=== PATIENT | male | born 1955 | race Caucasian/White ===

== ENCOUNTER 2020-10-14 08:16 | Emergency (ER) | payer OTHER ==
[2020-10-14 09:10] LABS: BASOPHIL 0.4 % (0-2); EOSINOPHIL 0.2 % (0-5); HCT 46.9 % (42.0-52.0); HGB 15.3 g/dl (13.2-18.0); MCH 29.8 pg (25.0-31.0); MCHC 32.6 g/dL (32.0-36.0); MCV 91.4 fL (78.0-100.0); MONOCYTE 8.9 % (0-12); MPV 10.7 fL (6.0-9.5); NEUTROPHIL 77.8 % (41-80); NRBC 0; PLT 229 K/uL (150-400); RBC 5.13 M/uL (4.70-6.00); RDW 14.5 % (11.5-14.0); WBC 12.8 K/uL (4.0-10.5)
[2020-10-14 09:11] LABS: BILIRUBIN 2+ mg/dL (NEGATIVE); BLOOD NEGATIVE Ery/uL (NEGATIVE); COLOR YELLOW (YELLOW); GLUCOSE (U) NORMAL (NORMAL); LEUKOCYTES NEGATIVE Leu/uL (NEGATIVE); NITRITE POSITIVE (NEGATIVE); PROTEIN 1+ mg/dL (NEGATIVE); SPECIFIC GRAVITY >=1.030 (1.001-1.030); pH 5.5 (5.0-9.0)
[2020-10-14 09:26] LABS: CLARITY HAZY (CLEAR)
[2020-10-14 09:28] LABS: BACTERIA TRACE; MUCOUS TRACE; URINARY RBC RARE
[2020-10-14 09:29] LABS: AMORPHOUS URATES CRYSTALS TRACE
[2020-10-14 09:31] LABS: ALBUMIN 3.2 g/dL (3.4-5.0); BILIRUBIN - TOTAL 1.8 mg/dL (0.2-1.0); BUN/CREAT RATIO (CALC) 14.9 RATIO; CREATININE 1.14 mg/dL (0.67-1.17); GLOBULIN (CALCULATION) 4.3 g/dL; POTASSIUM 4.5 mmol/L (3.5-5.1); TOTAL PROTEIN 7.5 g/dL (6.4-8.2)
[2020-10-14 09:37] LABS: LACTIC ACID 2.1 mmol/L (0.4-1.9)
[2020-10-14] MEDS ORDERED: NORCO 5-325 TA1 EACH PO ×2 (11:30→11:44)
== END 2020-10-14 11:52 | disposition home or self-care (01) ==
LOC: FER 08:16
PROVIDERS: Emergency Medicine
DX: C78.7 Secondary malignant neoplasm of liver and intrahepatic bile duct (principal); R91.8 Other nonspecific abnormal finding of lung field; C34.92 Malignant neoplasm of unspecified part of left bronchus or lung; F17.200 Nicotine dependence, unspecified, uncomplicated
CPT/HCPCS: 36415; 71250; 80053; 81001; 83605; 83690; 85025; 87088; 93005; J2543; J7030; Q9967

== ENCOUNTER 2020-10-31 09:25 | Inpatient (IN) | payer OTHER ==
[~2020-10-31 09:25] MED LIST: NORCO 5-325 TA1 EACH PO
[2020-10-31 09:54] LABS: BASOPHIL 0.2 % (0-2); EOSINOPHIL 0.2 % (0-5); HCT 49.8 % (42.0-52.0); HGB 17.2 g/dl (13.2-18.0); LYMPHOCYTE 7.8 % (15-48); MCH 30.2 pg (25.0-31.0); MCHC 34.5 g/dL (32.0-36.0); MCV 87.4 fL (78.0-100.0); MONOCYTE 6.1 % (0-12); NEUTROPHIL 79.2 % (41-80); NRBC 2.6; PLT 64 K/uL (150-400); RDW 21.2 % (11.5-14.0); WBC 19.4 K/uL (4.0-10.5)
[2020-10-31 10:13] LABS: INR 1.5 (0.9-1.2); PROTHROMBIN TIME 17.2 SECONDS (11.4-13.6); PTT 25.2 SECONDS (22.2-34.7)
[2020-10-31 10:17] LABS: ALBUMIN 2.5 g/dL (3.4-5.0); BUN/CREAT RATIO (CALC) 41.1 RATIO; CREATININE 1.51 mg/dL (0.67-1.17); GLOBULIN (CALCULATION) 3.9 g/dL; TOTAL PROTEIN 6.4 g/dL (6.4-8.2)
[2020-10-31 10:24] LABS: BILIRUBIN - TOTAL 12.6 mg/dL (0.2-1.0); POTASSIUM 7.3 mmol/L (3.5-5.1)
[2020-10-31 10:25] LABS: LACTIC ACID 11.4 mmol/L (0.4-1.9)
--- NOTE | 2020-11-01 06:30 | NUR ---
FAMILY AT BEDSIDE. FAMILY CAME TO THIS NURSE WITH CONCERNS THAT PATIENT MAY HAVE PASSED. THIS NURSE NOTIFIED THE KEVYN TAYLOR. TIME OF WAS 0607.
--- NOTE | 2020-11-01 14:45 | NUR ---
11/01/20 Patient prior to social assessment.
== END 2020-11-01 08:40 | disposition expired | DRG 180 ==
LOC: FER 09:25 → FMS 10:56
PROVIDERS: Emergency Medicine; ADMIT Internal Medicine
DX: C34.92 Malignant neoplasm of unspecified part of left bronchus or lung (principal); R65.11 Systemic inflammatory response syndrome (SIRS) of non-infectious origin with acute organ dysfunction; K72.00 Acute and subacute hepatic failure without coma; C78.7 Secondary malignant neoplasm of liver and intrahepatic bile duct; E87.2 Acidosis; C79.51 Secondary malignant neoplasm of bone; N17.9 Acute kidney failure, unspecified; E87.5 Hyperkalemia; E80.6 Other disorders of bilirubin metabolism; K76.89 Other specified diseases of liver; E86.0 Dehydration; Z51.5 Encounter for palliative care; M19.90 Unspecified osteoarthritis, unspecified site; F17.210 Nicotine dependence, cigarettes, uncomplicated; K72.90 Hepatic failure, unspecified without coma
CPT/HCPCS: 36415; 36600; 71045; 80053; 82803; 83605; 83690; 85025; 85610; 85730; 87040; 93005; J0610; J1956; J2270; J2405; J2543